=== PATIENT | female | born 1955 | race African-American/Black ===

== ENCOUNTER 2019-07-24 21:55 | Inpatient (IN) | payer MEDICARE, OTHER ==
[~2019-07-24] VITALS: Ht 165.1 cm; Wt 120.2 kg
[2019-07-24] MEDS ORDERED: NITROGLYCERIN OINT 1GM/INCH UDPKT TD ONE (23:15)
[2019-07-24] MEDS ORDERED: ASPIRIN 81MG TABLET PO ONE (23:15)
[2019-07-24 23:53] LABS: BASOPHILS % 0.9 % (0.0-2.0); HEMATOCRIT. 34.3 % (36.0-48.0); HEMOGLOBIN. 10.7 g/dL (12.0-16.0); LYMPHOCYTES % 43.5 % (20.0-50.0); MEAN CORPUSCULAR HEMOGLOBIN 23.1 pg (28.0-32.0); MEAN CORPUSCULAR VOLUME 73.9 fL (81.0-99.0); MEAN PLATELET VOLUME 9.9 fl (7.4-10.4); MONOCYTES % 6.9 % (2.0-8.0); NEUTROPHILS % 47.7 % (40.0-76.0); PLATELET 157 x1000/uL (130-400); RED BLOOD CELL COUNT 4.64 mill/uL (4.2-5.4); RED CELL DISTRIBUTION WIDTH 15.5 % (11.6-14.6)
[2019-07-24 23:57] LABS: CHLORIDE 109 mEq/L (98-107)
[2019-07-25] VITALS (7 sets, daily range): BP systolic 100–168; BP diastolic 60–94
[2019-07-25] MEDS ORDERED: ONDANSETRON HCL 4MG/2ML INJ IV PRN (03:30)
[2019-07-25] MEDS ORDERED: MORPHINE SULFATE 2 MG/ML CPJ (NOT FOR IM USE) IV PRN (03:30)
[2019-07-25] MEDS ORDERED: HYDROCODONE/ACETAMINOPHEN 5/325MG TABLET PO PRN (03:30)
[2019-07-25] MEDS ORDERED: MAGNESIUM/ALUMINUM HYDROXIDE/SIMETHICONE 30ML UDC PO PRN (03:30)
[2019-07-25] MEDS ORDERED: ACETAMINOPHEN 325MG TABLET PO PRN (03:30)
[2019-07-25] MEDS ORDERED: CLONIDINE 0.1MG TABLET PO PRN (03:30)
[2019-07-25] MEDS ORDERED: GUAIFENESIN 200MG/10ML SUGAR FREE UDC PO PRN (03:30)
[2019-07-25] MEDS ORDERED: DOCUSATE SODIUM 100MG CAPSULE PO PRN (08:00)
[2019-07-25] MEDS: ENOXAPARIN 30MG/0.3ML SYR SUBCUT SCH ×2 (10:26→21:19)
[2019-07-25] MEDS: ASPIRIN 81MG EC TABLET PO SCH (10:26)
[2019-07-25] MEDS: AMLODIPINE 10MG TABLET PO SCH (10:27)
[2019-07-25 12:49] LABS: LDL CHOLESTEROL 122 mg/dL (5-100)
[2019-07-25 12:50] LABS: CREATINE KINASE 216 IU/L (26-192)
[2019-07-25 12:51] LABS: HDL CHOLESTEROL 67 mg/dL (40-59)
[2019-07-25 12:52] LABS: CREATINE KINASE MB FRACTION 1.5 ng/mL (0.5-3.6)
[2019-07-25 20:43] LABS: CREATINE KINASE 179 IU/L (26-192)
[2019-07-25 20:44] LABS: CREATINE KINASE MB FRACTION 1.3 ng/mL (0.5-3.6)
[2019-07-26] VITALS: BP 158/82
[2019-07-26 04:00] VITALS: BP 130/77
[2019-07-26 06:43] LABS: CHLORIDE 109 mEq/L (98-107)
[2019-07-26 06:58] LABS: LDL CHOLESTEROL 128 mg/dL (5-100)
[2019-07-26 07:00] LABS: HDL CHOLESTEROL 62 mg/dL (40-59)
[2019-07-26 07:01] LABS: HEMATOCRIT. 34.7 % (36.0-48.0); HEMOGLOBIN. 10.9 g/dL (12.0-16.0); MEAN CORPUSCULAR HEMOGLOBIN 23.1 pg (28.0-32.0); MEAN CORPUSCULAR VOLUME 73.6 fL (81.0-99.0); MEAN PLATELET VOLUME 10.4 fl (7.4-10.4); PLATELET 154 x1000/uL (130-400); RED BLOOD CELL COUNT 4.71 mill/uL (4.2-5.4); RED CELL DISTRIBUTION WIDTH 15.1 % (11.6-14.6)
[2019-07-26 08:00] VITALS: BP 122/77
[2019-07-26] MEDS: ASPIRIN 81MG EC TABLET PO SCH (08:49)
[2019-07-26] MEDS: AMLODIPINE 10MG TABLET PO SCH (08:49)
[2019-07-26] MEDS: ENOXAPARIN 30MG/0.3ML SYR SUBCUT SCH (08:50)
[2019-07-26 10:35] LABS: T4 FREE 1.01 ng/dL (0.76-1.46)
[2019-07-26] MEDS ORDERED: REGADENOSON 0.4 MG/5 ML IV NR (11:30)
[2019-07-26 12:00] VITALS: BP 123/88
[2019-07-26 12:26] LABS: PLATELET ESTIMATE NORMAL
[2019-07-26] MEDS ORDERED: REGADENOSON 0.4 MG/5 ML IV ONE (13:18)
[2019-07-26 16:00] VITALS: BP 124/74
[2019-07-26 16:44] LABS: CREATINE KINASE 157 IU/L (26-192)
[2019-07-26 16:45] LABS: CREATINE KINASE MB FRACTION < 1.0 ng/mL (0.5-3.6)
[2019-07-26 17:10] VITALS: BP 124/74
[2019-07-26] MEDS ORDERED: ATORVASTATIN CALCIUM 20MG TABLET PO SCH (21:00)
[2019-07-26] MEDS ORDERED: ENOXAPARIN 40MG/0.4ML SYR SUBCUT SCH (21:00)
[2019-07-27] MEDS ORDERED: ASPIRIN 81MG TABLET PO SCH (09:00)
== END 2019-07-26 18:20 | disposition home or self-care (01) | DRG 206 ==
LOC: ER 21:55 → 5WST 07-25 02:25 → EDBEDREQDT 07-25 02:30 → EDBEDREQTM 07-25 02:30 → EDBEDREQ 07-25 02:30 → ENRESERV 07-25 04:00
PROVIDERS: ADMIT Hospitalist; ATTEND Hospitalist
DX: M94.0 Chondrocostal junction syndrome [Tietze] (principal); E11.9 Type 2 diabetes mellitus without complications; E78.5 Hyperlipidemia, unspecified; I10 Essential (primary) hypertension; I48.91 Unspecified atrial fibrillation; Z86.73 Personal history of transient ischemic attack (TIA), and cerebral infarction without residual deficits; Z79.899 Other long term (current) drug therapy; Z90.710 Acquired absence of both cervix and uterus; Z88.8 Allergy status to other drugs, medicaments and biological substances
CPT/HCPCS: 36415; 71045; 78452; 80061; 82550; 82553; 83036; 83880; 84439; 84443; 84484; 85379; 93005; 93017; 93306; 93970; 99285; A9500; J1650; J2270; J2785

== ENCOUNTER 2020-04-04 20:20 | Emergency (ER) | payer MEDICARE, MEDICAID ==
[~2020-04-04] VITALS: Ht 167.6 cm; Wt 99.0 kg
[2020-04-04] MEDS ORDERED: ONDANSETRON HCL 4MG/2ML INJ IV STA (22:34)
[2020-04-04] MEDS ORDERED: MORPHINE SULFATE 4 MG/ML CPJ (NOT FOR IM USE) IV STA (22:34)
[2020-04-04] MEDS ORDERED: SODIUM CHLORIDE 0.9% 1,000 ML IV ONE (22:34)
[2020-04-04 22:56] LABS: BASOPHILS % 0.3 % (0.0-2.0); EOSINOPHILS % 0.5 % (0.0-5.0); HEMATOCRIT. 35.9 % (36.0-48.0); HEMOGLOBIN. 11.4 g/dL (12.0-16.0); LYMPHOCYTES % 26.3 % (20.0-50.0); MEAN CORPUSCULAR HEMOGLOBIN 23.2 pg (28.0-32.0); MEAN PLATELET VOLUME 10.2 fl (7.4-10.4); MONOCYTES % 7.7 % (2.0-8.0); NEUTROPHILS % 65.2 % (40.0-76.0); PLATELET 171 x1000/uL (130-400); RED BLOOD CELL COUNT 4.91 mill/uL (4.2-5.4); RED CELL DISTRIBUTION WIDTH 15.8 % (11.6-14.6)
[2020-04-04 23:03] LABS: CHLORIDE 110 mEq/L (98-107)
[2020-04-04 23:06] LABS: INR 1.2; PROTHROMBIN TIME 12.7 sec (9.6-11.0)
[2020-04-04 23:11] LABS: CREATINE KINASE 371 IU/L (26-192)
[2020-04-05] MEDS ORDERED: IOHEXOL-350 100 ML BOTTLE ONE (00:08)
[2020-04-05] MEDS ORDERED: METHOCARBAMOL 500MG TABLET PO ONE (01:15)
[2020-04-05] MEDS ORDERED: KETOROLAC 30MG/ML VIAL IV ONE (01:15)
[2020-04-05 02:45] VITALS: BP 124/67
== END 2020-04-05 04:33 | disposition home or self-care (01) ==
LOC: ER 20:20
DX: M79.604 Pain in right leg (principal); M54.30 Sciatica, unspecified side; I10 Essential (primary) hypertension; I48.91 Unspecified atrial fibrillation; Z86.73 Personal history of transient ischemic attack (TIA), and cerebral infarction without residual deficits
CPT/HCPCS: 36415; 72170; 75635; 80053; 82550; 83605; 85025; 85610; 93005; 96374; 96375; 99291; J1885; J2270; J2405; J7030; Q9967; 99285